=== PATIENT | male | born 1940 | race Caucasian/White ===

== ENCOUNTER 2016-05-03 07:55 | Emergency (ER) | payer OTHER ==
--- NOTE | 2016-05-03 08:09 | UCPHY ---
H & P Patient Type: New HPI/ROS: CHIEF COMPLAINT: Cough, fever. HISTORY OF PRESENT ILLNESS: The patient is a 75-year-old male who presents with cough for 2 days and fever that began last night. The cough is dry and is keeping him awake at night. He also has fever and body aches. He did get his flu shot this year. He does report having an upper respiratory infection 2 weeks ago with sinus pressure and congestion. He admits possible sick contact at his gym. He denies vomiting, diarrhea, shortness of breath. REVIEW OF SYSTEMS: Constitutional: As above. Eyes: No diplopia. ENT: No sore throat. Cardiovascular: No chest pain, no palpitations. Respiratory: See HPI. Gastrointestinal: No nausea vomiting or diarrhea. No abdominal pain. Genitourinary: No flank pain. Musculoskeletal: No back pain. Skin: No rashes. Neurological: No headache. 10 point ROS otherwise negative Past Medical/Surgical History: Hypertension. Social History: . Physical Exam: General Appearance: Alert, no distress. Afebrile. Normal phonation. No respiratory distress. Eyes: Pupils equal and round no pallor or injection. No icterus ENT, Mouth: Mucous membranes moist. Pharynx not erythematous and without exudate. TM Clear. Frontal sinuses tender to palpation. Neck: No adenopathy. Supple. No JVD. Trachea in midline. Respiratory: There are no retractions, lungs are clear to auscultation. Cardiovascular: Regular rate and rhythm. No murmur. Skin: Warm and dry, no rashes. Musculoskeletal: No joint swelling. Extremities: No edema. Psychiatric: Affect nl. Constitutional: Initial Vital Signs Temperature (C) 37.4 C 05/03/16 08:08 Heart Rate 70 05/03/16 08:08 Respiratory Rate 18 05/03/16 08:08 Blood Pressure 176/106 H 05/03/16 08:08 O2 Sat (%) 96 05/03/16 08:08 O2 Delivery Mode Room Air Allergies/Adverse Reactions: No Known Allergies Allergy (Unverified 05/03/16 08:06) Home Medications: Medication Instructions Recorded Amox Tr/K Clav (Augmentin) 500 mg PO BID #10 tab 05/03/16 [Augmentin 500/125 MG TAB (*)] Amoxicillin 1,500 mg PO BID 5 Days 02/18/17 Aspirin 81mg (*) 05/03/16 Atorvastatin Calcium 05/03/16 Benzonatate 200 mg PO TID PRN #28 capsule 05/03/16 Lisinopril 05/03/16 Lunesta 05/03/16 Metoprolol Succinate 05/03/16 Oseltamivir Phosphate [Tamiflu 75 75 mg PO BID #0 cap 05/03/16 mg (*)] amLODIPine BESYLATE 05/03/16 Medical Decision Making Differential Diagnosis: Differential diagnosis includes but is not limited to the following: URI, pharyngitis, strep pharyngitis, otitis media, sinusitis, bronchitis, pneumonia. Departure - Departure Disposition: Home, Routine, Self-Care Clinical Impression: Influenza Sinusitis Qualifiers: Sinusitis location: frontal Chronicity: acute Recurrence: non-recurrent Qualified Code(s): J01.10 - Acute frontal sinusitis, unspecified Condition: Good Instructions: Influenza (ED) Additional Instructions: Take Tamiflu and the antibiotic as prescribed. Augmentin as along with the amoxicillin - these are given together as a combination formulation is not typically available at the local pharmacies. Use Delsym for tsp twice daily for the cough or the benzonatate prescription Drink plenty of fluids and be sure to get rest. Follow up with your primary care provider in the next 2-3 days if symptoms are not improving. Return for any serious worsening of condition. Referrals: Gonzales Braun [Primary Care Provider] - As per Instructions Prescriptions: Amox Tr/K Clav (Augmentin) [Augmentin 500/125 MG TAB (*)] 500 mg PO BID #10 tab Amoxicillin 1,500 mg PO BID 5 Days Benzonatate 200 mg PO TID PRN #28 capsule PRN Reason: Cough, Moderate Oseltamivir Phosphate [Tamiflu 75 mg (*)] 75 mg PO BID #0 cap Report Scribed for: [place] Report Scribed by: Joseph Colón Date of Report: 05/03/16 Time of Report: 08:05
[2016-05-03 08:19] VITALS: RESP 18; TEMP 99.3
[2016-05-03 09:18] VITALS: BP 167/98; PULSE 69; O2SAT 94
== END 2016-05-03 08:30 | disposition home or self-care (01) ==
LOC: CED 07:55
DX: R05 Cough (principal); R50.9 Fever, unspecified; M79.1 Myalgia; I10 Essential (primary) hypertension
CPT/HCPCS: G0463-PO

== ENCOUNTER 2016-08-08 07:27 | Observation (INO) | payer OTHER ==
[2016-08-08] MEDS ORDERED: NS 1,000 ML IV ONE (07:33)
[2016-08-08] MEDS ORDERED: DIAZEPAM 5 MG TAB PO ONE (07:33)
[2016-08-08] MEDS ORDERED: ASPIRIN EC 325 MG TAB PO ONE ×2 (07:33→07:55)
[2016-08-08] MEDS ORDERED: FAMOTIDINE 20 MG TAB PO ONE (07:33)
[2016-08-08] MEDS ORDERED: diphenhydrAMINE 25 MG CAP PO ONE ×2 (07:33→07:54)
--- NOTE | 2016-08-08 07:48 | CPEKG ---
Heart Rate: 66 RR Interval: 909 QRSD Interval: 94 QT Interval: 416 QTC Interval: 436 QRS [place]: 77 T Wave [place]: 66 EKG Severity - ABNORMAL ECG - EKG Impression: ATRIAL FIBRILLATION, V-RATE 51-81 EKG Impression: NONSPECIFIC IVCD EKG Impression: BORDERLINE T ABNORMALITIES, ANT-LAT LEADS Electronically Signed By: Indu Gamble 08-Aug-2016 08:38:12
[2016-08-08] MEDS ORDERED: FAMOTIDINE 20 MG TAB ONE (07:54)
[2016-08-08] MEDS ORDERED: DIAZEPAM 5 MG TAB ONE (07:55)
[2016-08-08 07:59] LABS: % IMMATURE GRANULYOCYTES 0.2 % (0.0-1.1); ABSOLUTE IMMATURE GRANULOCYTES 0.01 10^3/uL (0.00-0.10); ADD DIFF? NO; ADD MORPH? NO; ADD SCAN? NO; ATYPICAL LYMPHOCYTE FLAG 10 (0-99); FRAGMENT RBC FLAG 0 (0-99); HEMATOCRIT 48.6 % (40.0-51.0); HEMOGLOBIN 16.4 g/dL (13.7-17.5); LEFT SHIFT FLG 0 (0-99); LIPEMIA HEMOLYSIS FLAG 80 (0-99); MEAN CELL HEMOGLOBIN 28.9 pg (27.9-34.1); MEAN CELL HEMOGLOBIN CONCENTR. 33.7 g/dL (32.4-36.7); MEAN CELL VOLUME 85.7 fL (81.5-99.8); MEAN PLATELET VOLUME 9.2 fL (8.7-11.7); PLATELET CLUMPS FLAG 10 (0-99); PLATELET COUNT 161 10^3/uL (150-400); RED BLOOD CELL COUNT 5.67 10^6/uL (4.40-6.38); RED CELL DISTRIBUTION WIDTH 13.6 % (11.5-15.2)
[2016-08-08 08:08] LABS: INR 1.07 (0.83-1.16); PROTIME(PATIENT) 13.8 SEC (12.0-15.0)
[2016-08-08] MEDS ORDERED: MIDAZOLAM 2 MG/2 ML VIAL ONE (08:09)
[2016-08-08] MEDS ORDERED: LIDOCAINE 1% 300 MG/30 ML SDV ONE (08:09)
[2016-08-08] MEDS ORDERED: fentaNYL 100 MCG/2 ML INJ ONE (08:09)
[2016-08-08] MEDS ORDERED: IOPAMIDOL (ISOVUE-370) 150 ML BTL IV ONE ×2 (08:10→09:38)
[2016-08-08 08:16] LABS: ANION GAP 10 mEq/L (8-16); CALCIUM 9.3 mg/dL (8.5-10.4); CARBON DIOXIDE 22 mEq/l (22-31); CHLORIDE 109 mEq/L (97-110); CHOLESTEROL 148 mg/dL (140-220); CHOLESTEROL/HDL RATIO 2.55 RATIO (1.00-4.97); GLOMERULAR FILTRATION RATE > 60; GLUCOSE 124 mg/dL (70-100); HIGH DENSITY LIPOPROTEIN 58 mg/dL (40-65); LDL/HDL RATIO 1.17 RATIO (1.00-3.64); LOW DENSITY LIPOPROTEIN 68 mg/dL (80-100); MAGNESIUM 1.9 mg/dL (1.6-2.3); NON-HIGH DENSITY LIPOPROTEIN 90 mg/dL (90-129); POTASSIUM 4.3 mEq/L (3.5-5.2); SODIUM 141 mEq/L (134-144); TRIGLYCERIDE 110 mg/dL (40-150); VERY LOW DENSITY LIPOPROTEINS 22 mg/dL (8-25)
[2016-08-08] MEDS ORDERED: BIVALIRUDIN 250 MG/5 ML VIAL IV ONE (09:48)
[2016-08-08] MEDS ORDERED: NITROGLYCERIN 1,500 MCG/15 ML VIAL MISC ONE (09:48)
[2016-08-08] MEDS ORDERED: PRASUGREL HCL 10 MG TAB ONE (10:10)
[2016-08-08] MEDS ORDERED: TEMAZEPAM 15 MG CAP PO PRN (10:18)
[2016-08-08] MEDS ORDERED: ONDANSETRON 4 MG/2 ML VIAL IVP PRN (10:18)
[2016-08-08] MEDS ORDERED: HYDROCODONE/APAP 5/325 TAB PO PRN (10:18)
[2016-08-08] MEDS ORDERED: ACETAMINOPHEN 325 MG TAB PO PRN (10:18)
[2016-08-08] MEDS ORDERED: PRASUGREL HCL 10 MG TAB PO ONE (10:18)
[2016-08-08] MEDS ORDERED: NITROGLYCERIN 0.4 MG BTL SL PRN (10:18)
[2016-08-08] MEDS ORDERED: ATROPINE SULFATE 1 MG/10 ML SYR IVP PRN (10:18)
--- NOTE | 2016-08-08 12:01 | CPEKG ---
Heart Rate: 50 RR Interval: 1200 QRSD Interval: 96 QT Interval: 468 QTC Interval: 427 QRS [place]: 67 T Wave [place]: 51 EKG Severity - ABNORMAL ECG - EKG Impression: ATRIAL FIBRILLATION, V-RATE 42-55 EKG Impression: COMPARED WITH 08 AUG 2016, BORDERLINE T ABNL RESOLVED Electronically Signed By: Indu Gamble 08-Aug-2016 13:48:54
--- NOTE | 2016-08-08 14:15 | CPIP ---
[f rep st] INVASIVE CARDIAC PROCEDURE DATE OF PROCEDURE: 08/08/2016 PROCEDURE PERFORMED: Percutaneous coronary intervention of the left anterior descending. INDICATION FOR PROCEDURE: The patient is a 76-year-old male who underwent diagnostic cardiac cathet erization by Dr. Chris Miranda for an abnormal exercise treadmill test. The patient demonstrated nonsu stained ventricular tachycardia during an exercise treadmill test. He did not experience chest disc omfort. Nuclear perfusion images were notable for transient ischemic dilatation but no fixed or rev ersible perfusion abnormalities. His diagnostic cardiac catheterization demonstrated preserved left ventricular function, mild CAD involving the proximal LAD, mid circumflex, and RCA. There was a fo ann marie 75% to 80% lesion at the junction of the mid and distal portions of the left anterior descending . Based on the patient's clinical history, the decision was made to perform percutaneous coronary i ntervention. DESCRIPTION OF PROCEDURE: The patient received intravenous Angiomax. A 6-Belgian CLS 3.5 guide cath eter was advanced to the left main. An Intuition guidewire was advanced to the apical portion of le ft anterior descending. Predilatation of the target lesion was carried out using a 2.5 x 8 mm Emerg e balloon. A 2.75 x 16 mm Synergy stent was then advanced into position and was deployed at high pr essure. Final angiograms demonstrated 0% residual stenosis and KIRK-3 flow. COMPLICATIONS: None. CONCLUSION: Successful percutaneous coronary intervention of the left anterior descending using a s jovon drug-coated stent. RECOMMENDATIONS: The patient will be on dual anti-platelet therapy consisting of low-dose aspirin a nd Effient. He has chronic atrial fibrillation and is on systemic anticoagulation with Eliquis. In 4 weeks, the aspirin component of his dual anti-platelet therapy can be dropped for the remainder o f his 12-month course. /[id number]/MODL
--- NOTE | 2016-08-08 15:01 | CPIP ---
[f rep st] INVASIVE CARDIAC PROCEDURE DATE OF PROCEDURE: 08/08/2016 PROCEDURE PERFORMED: 1. Left heart catheterization. 2. Left coronary angiography. 3. Right coronary angiography. 4. Left ventriculogram. 5. Right common femoral artery angiography. INDICATION: The patient is a pleasant 76-year-old gentleman with a history of atrial fibrillation a nd hypertension, who underwent exercise treadmill stress test earlier this week demonstrating runs o f polymorphic nonsustained ventricular tachycardia. The patient was asymptomatic. He subsequently underwent an exercise nuclear stress test. He again had runs of polymorphic ventricular tachycardia and ventricular couplets. Nuclear imaging demonstrated no evidence of focal ischemia, but did demo nstrate transient ischemic dilatation. Tracings were reviewed with Electrophysiology. This was confirmed to be ventricular tachycardia, an d the patient was subsequently scheduled for diagnostic left heart catheterization today. His Eliqu is has been held since Thursday, August 06, 2016. DESCRIPTION OF PROCEDURE: After informed consent was obtained, the patient was brought to the [facility] catheterization lab, where he was prepped and draped in a sterile fashion. Using 1% lidocaine, t he right groin was anesthetized. Using the modified Seldinger technique, 6-English catheter was plac ed into the right common femoral artery without complications. JL4 catheter was used to take images of the left coronary anatomy in multiple projections. JL4 catheter was exchanged over a guidewire for a JR4 catheter. JR4 catheter was used to take images of the right coronary anatomy in multiple projections. The JR4 catheter was exchanged over a guidewire for an angled pigtail catheter. Angle d pigtail catheter was used to cross the aortic valve. Left ventriculogram was performed. Aortic v alve gradient was assessed. Angled pigtail catheter was removed over wire without complications. A ngiography of the right common femoral artery was obtained, demonstrating placement of 6-English baez th above the bifurcation of the common femoral artery. FINDINGS: 1. Left main is normal size and caliber and bifurcates into left anterior descending and left circu mflex coronary arteries. There is no evidence of coronary disease within the left main. 2. Left anterior descending demonstrates 20% proximal stenosis just proximal to the first large sep maria luisa legal operations manager. There is some ostial disease within the first septal legal operations manager. There is a 90% to 95% mid LAD stenosis. The remainder of the LAD is free of coronary artery disease. 3. Circumflex vessel is a codominant vessel. There is a 30% mid circumflex stenosis. The remainde r of the circumflex and obtuse marginal branches are free of coronary artery disease. 4. Right coronary artery is a codominant vessel. There are some mild luminal irregularities within the proximal segment, nothing greater than 20%. 5. Hemodynamics: LVEF 60% to 65%. No evidence of aortic valve gradient. CONCLUSIONS: 1. Severe single-vessel disease with a mid LAD lesion of 90% to 95%. 2. Mild coronary artery disease within the proximal LAD and mid circumflex and mid right coronary a rtery. IMPRESSION: I have reviewed these images with my interventional colleague, Dr. Higuera. We will p noé for percutaneous coronary intervention to the mid LAD. PLAN: 1. Plan for percutaneous coronary intervention. 2. We will continue with aggressive risk factor modification. 3. We will plan for outpatient treadmill stress test on beta vero therapy to assess whether his ventricular ectopy has resolved with PCI to the mid LAD. /[id number]/MODL
[2016-08-08] MEDS: NS 1,000 ML IV SCH ×2 (18:07→22:01)
[2016-08-08] MEDS ORDERED: APIXABAN 5 MG TAB PO SCH (21:00)
--- NOTE | 2016-08-09 05:54 | CPEKG ---
Heart Rate: 55 RR Interval: 1091 QRSD Interval: 90 QT Interval: 432 QTC Interval: 414 QRS [place]: 70 T Wave [place]: 66 EKG Severity - ABNORMAL ECG - EKG Impression: ATRIAL FIBRILLATION, V-RATE 42-63 Electronically Signed By: Indu Gamble 09-Aug-2016 13:50:36
[2016-08-09 07:47] LABS: % IMMATURE GRANULYOCYTES 0.4 % (0.0-1.1); ABSOLUTE IMMATURE GRANULOCYTES 0.02 10^3/uL (0.00-0.10); ADD DIFF? NO; ADD MORPH? NO; ADD SCAN? NO; ATYPICAL LYMPHOCYTE FLAG 0 (0-99); FRAGMENT RBC FLAG 0 (0-99); HEMATOCRIT 46.7 % (40.0-51.0); HEMOGLOBIN 15.9 g/dL (13.7-17.5); LEFT SHIFT FLG 0 (0-99); LIPEMIA HEMOLYSIS FLAG 90 (0-99); MEAN CELL HEMOGLOBIN 29.2 pg (27.9-34.1); MEAN CELL VOLUME 85.7 fL (81.5-99.8); MEAN PLATELET VOLUME 9.6 fL (8.7-11.7); PLATELET CLUMPS FLAG 10 (0-99); PLATELET COUNT 139 10^3/uL (150-400); RED BLOOD CELL COUNT 5.45 10^6/uL (4.40-6.38); RED CELL DISTRIBUTION WIDTH 13.5 % (11.5-15.2)
[2016-08-09 08:38] VITALS: BP 153/103; PULSE 65; RESP 18; TEMP 98; O2SAT 97
[2016-08-09 08:45] LABS: ALBUMIN 3.6 g/dL (3.5-5.0); ANION GAP 8 mEq/L (8-16); ASPARTATE AMINOTRANSFERASE 35 IU/L (17-59); BILIRUBIN,TOTAL 1.7 mg/dL (0.1-1.4); CALCIUM 8.6 mg/dL (8.5-10.4); CARBON DIOXIDE 22 mEq/l (22-31); CHLORIDE 109 mEq/L (97-110); CREATININE 0.9 mg/dL (0.7-1.3); GLOMERULAR FILTRATION RATE > 60; GLUCOSE 112 mg/dL (70-100); LACTATE DEHYDROGENASE 449 IU/L (313-618); MAGNESIUM 1.9 mg/dL (1.6-2.3); POTASSIUM 4.2 mEq/L (3.5-5.2); SODIUM 139 mEq/L (134-144)
[2016-08-09] MEDS ORDERED: PRASUGREL HCL 10 MG TAB PO SCH (09:00)
[2016-08-09] MEDS ORDERED: LISINOPRIL 40 MG TAB PO SCH (09:00)
[2016-08-09] MEDS ORDERED: METOPROLOL SUCCINATE XR 50 MG TAB PO SCH (09:00)
[2016-08-09] MEDS ORDERED: ATORVASTATIN CALCIUM 10 MG TAB PO SCH (09:00)
[2016-08-09] MEDS ORDERED: amLODIPine BESYLATE 5 MG TAB PO SCH (09:00)
[2016-08-09] MEDS ORDERED: ASPIRIN EC 81 MG TAB PO SCH (09:00)
[2016-08-09] MEDS ORDERED: ASPIRIN EC 325 MG TAB PO SCH (09:00)
--- NOTE | 2016-08-09 09:16 | PDCARPN ---
Cardiology Progress Note Assessment/Plan: Assessment: 1. CAD sp PCI to mid LAD 2. Non sustained VT 3. Atrial fibrillation Plan: 1. OK to discharge home today 2. Aspirin 81 mg daily 3. Effient 10 mg daily 4. Start Eliquis until Thursday, August 11, 2016 with morning dose 5. Decrease Metoprolol Succinate to 50 mg daily 6. No other changes to admission medications 7. Follow up with me on Saturday, August 13, 2016 8. Will plan to start cardiac rehab after follow up 9. Post cath and pci instructions reviewed. 08/09/16 09:12 Subjective: Mr. Stephen he is feeling well this morning. No cardiac complaints. No complaints of palpitations, dizziness, lightheadedness or syncope. No chest pain. Right groin site without hematoma or ecchymosis. Distal pulses intact. Telemetry demonstrates episodes of marked bradycardia with rates in the 40s. Pauses between 2 and 3 seconds. He is asymptomatc. Reviewed/Discussed With: family Time Spent With Patient: 30 minutes Objective: Vital Signs (8 Hrs) Temp Pulse Resp BP Pulse Ox 08/09/16 08:00 36.6 C 65 18 153/103 H 97 08/09/16 07:56 67 08/09/16 04:00 36.7 C 57 L 13 155/85 H 95 Intake/Output (24 Hrs) 08/08/16 08/09/16 08/10/16 05:59 05:59 05:59 Intake Total 0 Output Total 550 Balance 1500 Intake: Oral (ml) 1350 IV Intake (ml) 700 Output: Urine (ml) 550 Urinal 550 Other: Weight 102.1 kg Result Diagrams: 08/09/16 07:30 08/09/16 07:30 Telemetry: Atrial fibrillation - Physical Exam Constitutional: WDWN Ears, Nose, Mouth, Throat: moist mucous membranes Cardiovascular: no murmurs, no rubs, no gallops, irregularly irregular, pulses symmetric bilat Peripheral Pulses: 2+: carotid (R), carotid (L), femoral (R), dorsalis-pedis (R) , dorsalis-pedis (L) Respiratory: clear to auscultate bilat Gastrointestinal: normoactive bowel sounds Skin: no rashes Musculoskeletal: no muscular tenderness Neurologic: AAOx3, CN II-XII grossly intact Psychiatric: cooperative, following commands, not anxious ICD10 Worksheet Patient Problems: Problems Problem Status Onset Influenza Acute Sinusitis Acute
--- NOTE | 2016-08-09 10:04 | GDS ---
[f rep st] DISCHARGE SUMMARY INDICATION FOR ADMISSION: The patient was admitted for elective left heart catheterization in the s etting of multiple runs of nonsustained ventricular tachycardia on exercise treadmill stress test. DIAGNOSES AT TIME OF DISCHARGE: 1. Coronary artery disease with percutaneous coronary intervention to the mid left anterior descend ing. 2. Nonsustained ventricular tachycardia. 3. Atrial fibrillation. 4. Essential hypertension. HOSPITAL COURSE: The patient is a pleasant 76-year-old gentleman who was admitted electively Thursday, August 08, 2016, for diagnostic left heart catheterization after exercise treadmill stress te st done earlier in the week demonstrated multiple runs of nonsustained ventricular tachycardia, coup lets and isolated PVCs that were asymptomatic. Nuclear imaging demonstrated transient ischemic dila tation. As a result of the findings on his exercise treadmill stress test, he was arranged for diag nostic left heart catheterization. Left heart catheterization demonstrated significant single-vessel coronary artery disease with lesio n within the mid LAD. He underwent successful percutaneous coronary intervention with a Synergy juan alberto g-eluting stent to the mid LAD. He tolerated the procedure well. He did have some postoperative br adycardia. Telemetry demonstrated pauses between 2 and 3 seconds that were asymptomatic. The patient had no cardiac complications overnight. He remained hemodynamically stable. Lab work a t time of discharge was unremarkable. This morning on exam he is feeling well without cardiac compl aint. Right common femoral artery angiography site is without hematoma or ecchymosis. DISCHARGE MEDICATIONS: 1. Aspirin 81 mg daily. 2. Effient 10 mg daily. 3. Metoprolol succinate 50 mg once daily. 4. Lisinopril 40 mg daily. 5. Atorvastatin 10 mg daily. 6. Amlodipine 5 mg daily. 7. Tylenol 325 mg p.o. p.r.n. 8. Herbal supplement once daily. 9. Sildenafil 50-100 mg p.o. p.r.n. 10. Eliquis 5 mg p.o. b.i.d. will be restarted on Thursday, August 11, 2016. DISCONTINUED MEDICATIONS: During hospitalization: 1. Metoprolol succinate 100 mg daily. 2. Celebrex. 3. Ibuprofen. DISCHARGE EXAM: GENERAL: The patient is awake, alert, oriented, appropriate. No apparent distress . There is no evidence of JVP or carotid bruits. LUNGS: Clear to auscultation bilaterally. VASCU LAR: Right femoral artery site is without hematoma or ecchymosis. 2+ distal pulses are intact. Ri ght common femoral artery pulses intact. VITAL SIGNS: Blood pressure 153/103, heart rate 65, in ra te controlled atrial fibrillation, respiratory rate of 18, oxygen saturation 97% on room air, temper ature 36.6. DISCHARGE LAB WORK: White blood cell count 5.29, hemoglobin 15.9, hematocrit 46.7, platelet count 1 39, sodium 139, potassium 4.2, chloride 109, bicarb 22, BUN 16, creatinine 0.9, glucose 112, AST 35, total cholesterol 148, triglycerides 110, HDL 58, LDL calculated 68. DISCHARGE PLAN: 1. The patient will be discharged home. 2. The patient is scheduled for followup with me in the office on Thursday, August 13, 2016. [facility] ient will plan to start cardiac rehab after followup visit with me on Thursday. 3. The patient has been instructed to not restart Eliquis until Thursday, August 11, 2016, with morning dose. 4. Post operative instructions have been provided. The patient has been instructed on compliance w ith aspirin and Effient. 5. Instructions have been reviewed with the patient and his . Over 30 minutes have been spent in coordinating discharge. /[id number]/MODL
[2016-08-13 14:43] LABS: 2C19S INTERPRETATION See Comments
== END 2016-08-09 10:06 | disposition home or self-care (01) ==
LOC: FCATH 07:27 → F2W 18:41
PROVIDERS: ADMIT Internal Medicine Cardiovascular Disease; ATTEND Internal Medicine Cardiovascular Disease
PROC: B2151ZZ Fluoroscopy of Left Heart using Low Osmolar Contrast (ICD-10-PCS; principal; 2016-08-08)
PROC: B41FZZZ Fluoroscopy of Right Lower Extremity Arteries (ICD-10-PCS; principal; 2016-08-08)
PROC: 027034Z Dilation of Coronary Artery, One Artery with Drug-eluting Intraluminal Device, Percutaneous Approach (ICD-10-PCS; principal; 2016-08-08)
PROC: B2111ZZ Fluoroscopy of Multiple Coronary Arteries using Low Osmolar Contrast (ICD-10-PCS; principal; 2016-08-08)
PROC: 4A023N7 Measurement of Cardiac Sampling and Pressure, Left Heart, Percutaneous Approach (ICD-10-PCS; principal; 2016-08-08)
DX: I25.10 Atherosclerotic heart disease of native coronary artery without angina pectoris (principal); I47.2 Ventricular tachycardia; I48.91 Unspecified atrial fibrillation; I10 Essential (primary) hypertension
CPT/HCPCS: 92928; 93005; 93458; C1725; C1769; C1887; G0378; 81225-90; C1760; C1874; C9600; J0583; J1644; J2250; J3010; Q9967